=== PATIENT | female | born 1995 ===

== ENCOUNTER 2019-04-10 03:45 | Inpatient (IN) | payer OTHER ==
[2019-04-10] MEDS ORDERED: Carboprost Tromethamine 250 MCG/1 ML Amp IM PRN (04:27)
[2019-04-10] MEDS ORDERED: Sodium Chloride 0.9% 2.5 ML Syringe FLUSH PRN (04:27)
[2019-04-10] MEDS ORDERED: Ondansetron 4 MG/2 ML SDV IV PRN (04:27)
[2019-04-10] MEDS ORDERED: Water For Irrigation,Sterile 1,000 ML Container IRR PRN (04:27)
[2019-04-10] MEDS ORDERED: Sodium Chloride 0.9% 10 ML Syringe FLUSH PRN (04:27)
[2019-04-10] MEDS ORDERED: Misoprostol 200 MCG Tab PO PRN (04:27)
[2019-04-10] MEDS ORDERED: Methylergonovine 0.2 MG/1 ML Amp IM PRN (04:27)
[2019-04-10] MEDS ORDERED: Sodium Chloride 0.9% 10 ML SDV IV PRN (04:27)
[2019-04-10] MEDS ORDERED: Lidocaine 1% 50 ML MDV INJECT PRN (04:27)
[2019-04-10] MEDS ORDERED: Nalbuphine 10 MG/1 ML Vial IVPUSH PRN ×2 (04:27→18:52)
[2019-04-10] MEDS ORDERED: Terbutaline 1 MG/ML SDV SUBCUT PRN (04:27)
[2019-04-10] MEDS ORDERED: Tranexamic Acid 1,000 MG in Sodium Chloride 0.9% 100 ML IV PRN (04:27)
[2019-04-10] MEDS ORDERED: Oxytocin/0.9 % Sodium Chloride 30 UNIT/500 ML BAG IV SCH ×2 (04:30)
[2019-04-10] MEDS ORDERED: Misoprostol 25 MCG (1/4 of 100 MCG) Tab VAG PRN ×2 (05:00)
[2019-04-10] MEDS ORDERED: Misoprostol 25 MCG (1/4 of 100 MCG) Tab PO SCH (05:00)
--- NOTE | 2019-04-10 08:53 | PCM.LDHP ---
L&D History of Present Illness - General Date of Service: 04/10/19 Admit Problem/Dx: Patient Status Order with Admit Dx/Problem 04/10/19 04:27 Patient Status [ADT] Routine Admission Diagnosis/Problem Admission Diagnosis/Problem Planned Source of Information: Patient History Limitations: Reports: No Limitations - History of Present Illness Introduction:: 23 yo presents for IOL; O+/RI/GBS- - Related Data Allergies/Adverse Reactions: Allergies Allergy/AdvReac Type Severity Reaction Status Date / Time No Known Allergies Allergy Verified 04/10/19 04:26 Home Medications: Home Meds PNV95/Ferrous Fumarate/FA [ Vitamin Tablet] 1 tab PO DAILY 04/10/19 [ History] Past Medical History - Past Health History Medical/Surgical History: Denies Medical/Surgical History HEENT History: Reports: None Cardiovascular History: Reports: None Respiratory History: Reports: None Gastrointestinal History: Reports: None Genitourinary History: Reports: None 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: Reports: Musculoskeletal History: Reports: None Neurological History: Reports: None Psychiatric History: Reports: None Endocrine/Metabolic History: Reports: None Hematologic History: Reports: None Immunologic History: Reports: None Oncologic (Cancer) History: Reports: None Dermatologic History: Reports: None - Infectious Disease History Infectious Disease History: Reports: None - Past Surgical History Head Surgeries/Procedures: Reports: None HEENT Surgical History: Reports: None Cardiovascular Surgical History: Reports: None Respiratory Surgical History: Reports: None GI Surgical History: Reports: None Female Surgical History: Reports: None Endocrine Surgical History: Reports: None Neurological Surgical History: Reports: None Musculoskeletal Surgical History: Reports: None Oncologic Surgical History: Reports: None Dermatological Surgical History: Reports: None Social & Family History - Family History HEENT: Reports: None Cardiac: Reports: None Respiratory: Reports: None GI: Reports: None : Reports: None OBGYN: Reports: None Musculoskeletal: Reports: None Neurological: Reports: None Psychiatric: Reports: None Endocrine/Metabolic: Reports: None Hematologic: Reports: None Immunologic: Reports: None Dermatologic: Reports: None Oncologic: Reports: Breast - Tobacco Use Smoking Status *Q: Former Smoker Packs/Tins Daily: 1 Used Tobacco, but Quit: Yes Month/Year Tobacco Last Used: 07/2018 Second Hand Smoke Exposure: No - Caffeine Use Caffeine Use: Reports: Coffee, Soda - Recreational Drug Use Recreational Drug Use: No H&P Review of Systems - Review of Systems: Review Of Systems: See Below General: Reports: No Symptoms HEENT: Reports: No Symptoms Pulmonary: Reports: No Symptoms Cardiovascular: Reports: No Symptoms Gastrointestinal: Reports: No Symptoms Genitourinary: Reports: No Symptoms Musculoskeletal: Reports: No Symptoms Skin: Reports: No Symptoms Psychiatric: Reports: No Symptoms Neurological: Reports: No Symptoms Hematologic/Lymphatic: Reports: No Symptoms Immunologic: Reports: No Symptoms L&D Exam - Exam Exam: See Below - Vital Signs Weight: 98.883 kg - OB Specific Movement: Active Heart Tones: Present Heart Tones per Min: 135 - Carter Score Carter Score Cervix Position: Midposition Carter Score Consistency: Soft Carter Score Effacement: >80% Carter Score Dilation: 1-2 cm Carter Score 's Station: -2 Carter Score Total: 8 - Exam General: Alert, Oriented, Cooperative Lungs: Clear to Auscultation, Normal Respiratory Effort Cardiovascular: Regular Rate, Regular Rhythm Rectal Exam: Deferred Genitourinary: Normal external exam Back Exam: Full Range of Motion Extremities: Normal Inspection, Normal Range of Motion Skin: Warm, Dry, Intact Psychiatric: Alert, Normal Affect, Normal Mood - Patient Data Lab Results Last 24 hrs: Laboratory Results - last 24 hr 04/10/19 04/10/19 Range/Units 04:50 04:50 WBC 15.24 H (4.0-11.0) K/uL RBC 4.17 L (4.30-5.90) M/uL Hgb 12.6 (12.0-16.0) g/dL Hct 38.2 (36.0-46.0) % MCV 91.6 (80.0-98.0) fL MCH 30.2 (27.0-32.0) pg MCHC 33.0 (31.0-37.0) g/dL RDW Std Deviation 44.4 (28.0-62.0) fl RDW Coeff of Genesis 13 (11.0-15.0) % Plt Count 300 (150-400) K/uL MPV 10.90 (7.40-12.00) fL Nucleated RBC % 0.0 /100WBC Nucleated RBCs # 0 K/uL Blood Type O POSITIVE Antibody Screen NEGATIVE Result Diagrams: 04/10/19 04:50 - Problem List (1) IUP (intrauterine ), incidental SNOMED Code(s): 12892843 ICD Code: Z34.90 - ENCNTR FOR SUPRVSN OF NORMAL , UNSP, UNSP TRIMESTER Status: Acute Priority: High Current Visit: Yes Problem List Initiated/Reviewed/Updated: Yes Orders Last 24hrs: Active Orders 24 hr Category Date Time Status Patient Status [ADT] Routine ADT 04/10/19 04:27 Active Bedrest Bathroom Privileges [RC] ASDIRECTED Care 04/10/19 04:27 Active Communication Order [RC] ASDIRECTED Care 04/10/19 04:27 Active Communication Order [RC] ASDIRECTED Care 04/10/19 04:27 Active Communication Order [RC] ASDIRECTED Care 04/10/19 04:27 Active May Shower [RC] ASDIRECTED Care 04/10/19 04:27 Active Notify Provider [RC] PRN Care 04/10/19 04:27 Active Notify Provider [RC] PRN Care 04/10/19 04:27 Active Notify Provider [RC] PRN Care 04/10/19 04:27 Active Notify Provider [RC] STAT Care 04/10/19 04:27 Active Up ad Mari [RC] ASDIRECTED Care 04/10/19 04:27 Active Vital Signs [RC] PER UNIT ROUTINE Care 04/10/19 04:27 Active Regular Diet [DIET] Diet 04/10/19 Breakfast Active Carboprost Tromethamine [Hemabate DS] Med 04/10/19 04:27 Active 250 mcg IM ASDIRECTED PRN Lactated Ringers [Ringers, Lactated] 1,000 ml Med 04/10/19 04:30 Active IV ASDIRECTED Lidocaine 1% [Xylocaine 1%] Med 04/10/19 04:27 Active 50 ml INJECT ONETIME PRN Methylergonovine [Methergine] Med 04/10/19 04:27 Active 0.2 mg IM ASDIRECTED PRN Nalbuphine [Nubain] Med 04/10/19 04:27 Active 10 mg IVPUSH Q1H PRN Ondansetron [Zofran] Med 04/10/19 04:27 Active 4 mg IV Q6H PRN Oxytocin/0.9 % Sodium Chloride [Oxytocin 30 Unit/500 ML Med 04/10/19 04:30 Active -NS] 30 unit in 500 ml IV TITRATE Oxytocin/0.9 % Sodium Chloride [Oxytocin 30 Unit/500 ML Med 04/10/19 04:30 Active -NS] 30 unit in 500 ml IV TITRATE Sodium Chloride 0.9% [Normal Saline] Med 04/10/19 04:27 Active 10 ml IV ASDIRECTED PRN Sodium Chloride 0.9% [Saline Flush] Med 04/10/19 04:27 Active 10 ml FLUSH ASDIRECTED PRN Sodium Chloride 0.9% [Saline Flush] Med 04/10/19 04:27 Active 2.5 ml FLUSH ASDIRECTED PRN Terbutaline [Brethine] Med 04/10/19 04:27 Active 0.25 mg SUBCUT ASDIRECTED PRN Tranexamic Acid [Cyklokapron] 1,000 mg Med 04/10/19 04:27 Active Sodium Chloride 0.9% [Normal Saline] 100 ml IV ONETIME Water For Irrigation,Sterile [Sterile Water for Med 04/10/19 04:27 Active Irrigation] 1,000 ml IRR ASDIRECTED PRN miSOPROStol [Cytotec] Med 04/10/19 04:27 Active 200 mcg PO ONETIME PRN miSOPROStol [Cytotec] Med 04/10/19 05:00 Active 25 mcg PO Q4H miSOPROStol [Cytotec] Med 04/10/19 05:00 Active 25 mcg VAG ONETIME PRN miSOPROStol [Cytotec] Med 04/10/19 05:00 Active 25 mcg VAG Q4H PRN Scalp Electrode [WOMSER] Per Unit Routine Oth 04/10/19 04:27 Ordered Medication Administration Instruction [OM.PC] Q3H Oth 04/10/19 04:30 Ordered Peripheral IV Insertion Adult [OM.PC] Routine Oth 04/10/19 04:27 Ordered Resuscitation Status Routine Resus Stat 04/10/19 04:27 Ordered Medication Orders Carboprost Tromethamine (Hemabate Ds) 250 mcg IM ASDIRECTED PRN PRN Reason: Post Hemorrhage Lactated Ringer's (Ringers, Lactated) 1,000 mls @ 150 mls/hr IV ASDIRECTED EDNA Oxytocin/Sodium Chloride (Oxytocin 30 Unit/500 Ml-Ns) 30 unit in 500 mls @ 999 mls/hr IV TITRATE EDNA Oxytocin/Sodium Chloride (Oxytocin 30 Unit/500 Ml-Ns) 30 unit in 500 mls @ 2 mls/hr IV TITRATE EDNA; Protocol Tranexamic Acid 1,000 mg/ (Sodium Chloride) 110 mls @ 660 mls/hr IV ONETIME PRN PRN Reason: Bleeding Lidocaine HCl (Xylocaine 1%) 50 ml INJECT ONETIME PRN PRN Reason: Laceration repair Methylergonovine Maleate (Methergine) 0.2 mg IM ASDIRECTED PRN PRN Reason: Post Hemorrhage Misoprostol (Cytotec) 200 mcg PO ONETIME PRN PRN Reason: Post Hemorrhage Misoprostol (Cytotec) 25 mcg VAG ONETIME PRN PRN Reason: Cervical Ripening Last Admin: 04/10/19 05:08 Dose: 25 mcg Misoprostol (Cytotec) 25 mcg VAG Q4H PRN PRN Reason: Cervical Ripening Misoprostol (Cytotec) 25 mcg PO Q4H EDNA Last Admin: 04/10/19 05:08 Dose: 25 mcg Nalbuphine HCl (Nubain) 10 mg IVPUSH Q1H PRN PRN Reason: Pain (severe 7-10) Ondansetron HCl (Zofran) 4 mg IV Q6H PRN PRN Reason: Nausea/Vomiting Sodium Chloride (Saline Flush) 10 ml FLUSH ASDIRECTED PRN PRN Reason: Keep Vein Open Sodium Chloride (Saline Flush) 2.5 ml FLUSH ASDIRECTED PRN PRN Reason: Keep Vein Open Sodium Chloride (Normal Saline) 10 ml IV ASDIRECTED PRN PRN Reason: IV Use Sterile Water (Sterile Water For Irrigation) 1,000 ml IRR ASDIRECTED PRN PRN Reason: delivery Terbutaline Sulfate (Brethine) 0.25 mg SUBCUT ASDIRECTED PRN PRN Reason: Tacysystole Assessment/Plan Comment:: Admit: A: 23 yo presents for IOL; O+/RI/GBS-, SVE 3/80/-2, soft, mid; AROM clear P: cytotec to pitocin, expectant managment; anticipate , Dr. Rubi updated
[2019-04-10] MEDS: Lactated Ringers 1,000 ML IV SCH ×3 (10:05→13:35)
[2019-04-10] MEDS ORDERED: Ropivacaine 0.2% 2 MG/ML 20 ML SDV ONE (10:22)
[2019-04-10] MEDS ORDERED: fentaNYL 100 MCG/2 ML SDV ONE (10:22)
[2019-04-10] MEDS ORDERED: Ropivacaine HCl/PF 100 ML ONE (10:23)
--- NOTE | 2019-04-10 10:58 | PCM.PREANE ---
Preanesthetic Assessment - Anesthesia/Transfusion/Family Hx Anesthesia History: No Prior Anesthesia Family History of Anesthesia Reaction: No Transfusion History: No Prior Transfusion(s) Type of Transfusion Reactions: Reports: Unknown - Review of Systems General: No Symptoms Pulmonary: No Symptoms Cardiovascular: No Symptoms Gastrointestinal: No Symptoms Neurological: No Symptoms Other: Reports: None - Physical Assessment NPO Status Date: 04/10/19 NPO Status Time: 07:00 (kyrgyz to) Height: 5 ft 6 in Weight: 98.883 kg ASA Class: 2E Mental Status: Alert & Oriented x3 Airway Class: Mallampati = 2 Dentition: Reports: Normal Dentition Thyro-Mental Finger Breadths: 3 ROM/Head Extension: Full Lungs: Clear to Auscultation, Normal Respiratory Effort Cardiovascular: Regular Rate, Regular Rhythm Other: tongue ring - Lab Values: Laboratory Last Values WBC 15.24 K/uL (4.0-11.0) H 04/10/19 04:50 RBC 4.17 M/uL (4.30-5.90) L 04/10/19 04:50 Hgb 12.6 g/dL (12.0-16.0) 04/10/19 04:50 Hct 38.2 % (36.0-46.0) 04/10/19 04:50 MCV 91.6 fL (80.0-98.0) 04/10/19 04:50 MCH 30.2 pg (27.0-32.0) 04/10/19 04:50 MCHC 33.0 g/dL (31.0-37.0) 04/10/19 04:50 RDW Std Deviation 44.4 fl (28.0-62.0) 04/10/19 04:50 RDW Coeff of Genesis 13 % (11.0-15.0) 04/10/19 04:50 Plt Count 300 K/uL (150-400) 04/10/19 04:50 MPV 10.90 fL (7.40-12.00) 04/10/19 04:50 Nucleated RBC % 0.0 /100WBC 04/10/19 04:50 Nucleated RBCs # 0 K/uL 04/10/19 04:50 Blood Type O POSITIVE 04/10/19 04:50 Antibody Screen NEGATIVE 04/10/19 04:50 - Allergies Allergies/Adverse Reactions: Allergies Allergy/AdvReac Type Severity Reaction Status Date / Time No Known Allergies Allergy Verified 04/10/19 04:26 - Acknowledgements Anesthesia Type Planned: Epidural Pt an Appropriate Candidate for the Planned Anesthesia: Yes Alternatives and Risks of Anesthesia Discussed w Pt/Guardian: Yes Pt/Guardian Understands and Agrees with Anesthesia Plan: Yes PreAnesthesia Questionnaire - Past Health History Medical/Surgical History: Denies Medical/Surgical History HEENT History: Reports: None Cardiovascular History: Reports: None Respiratory History: Reports: None Gastrointestinal History: Reports: None Genitourinary History: Reports: None 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: Musculoskeletal History: Reports: None Neurological History: Reports: None Psychiatric History: Reports: None Endocrine/Metabolic History: Reports: None Hematologic History: Reports: None Immunologic History: Reports: None Oncologic (Cancer) History: Reports: None Dermatologic History: Reports: None - Infectious Disease History Infectious Disease History: Reports: None - Past Surgical History Head Surgeries/Procedures: Reports: None HEENT Surgical History: Reports: None Cardiovascular Surgical History: Reports: None Respiratory Surgical History: Reports: None GI Surgical History: Reports: None Female Surgical History: Reports: None Endocrine Surgical History: Reports: None Neurological Surgical History: Reports: None Musculoskeletal Surgical History: Reports: None Oncologic Surgical History: Reports: None Dermatological Surgical History: Reports: None - SUBSTANCE USE Smoking Status *Q: Former Smoker Tobacco Use Within Last Twelve Months: Cigarettes Second Hand Smoke Exposure: No Recreational Drug Use History: No - HOME MEDS Home Medications: Home Meds PNV95/Ferrous Fumarate/FA [ Vitamin Tablet] 1 tab PO DAILY 04/10/19 [ History] - CURRENT (IN HOUSE) MEDS Current Meds: Current Medications Carboprost Tromethamine (Hemabate Ds) 250 mcg IM ASDIRECTED PRN PRN Reason: Post Hemorrhage Lactated Ringer's (Ringers, Lactated) 1,000 mls @ 150 mls/hr IV ASDIRECTED EDNA Last Admin: 04/10/19 10:48 Dose: 999 mls/hr Oxytocin/Sodium Chloride (Oxytocin 30 Unit/500 Ml-Ns) 30 unit in 500 mls @ 999 mls/hr IV TITRATE EDNA Oxytocin/Sodium Chloride (Oxytocin 30 Unit/500 Ml-Ns) 30 unit in 500 mls @ 2 mls/hr IV TITRATE EDNA; Protocol Tranexamic Acid 1,000 mg/ (Sodium Chloride) 110 mls @ 660 mls/hr IV ONETIME PRN PRN Reason: Bleeding Lidocaine HCl (Xylocaine 1%) 50 ml INJECT ONETIME PRN PRN Reason: Laceration repair Methylergonovine Maleate (Methergine) 0.2 mg IM ASDIRECTED PRN PRN Reason: Post Hemorrhage Misoprostol (Cytotec) 200 mcg PO ONETIME PRN PRN Reason: Post Hemorrhage Misoprostol (Cytotec) 25 mcg VAG ONETIME PRN PRN Reason: Cervical Ripening Last Admin: 04/10/19 05:08 Dose: 25 mcg Misoprostol (Cytotec) 25 mcg VAG Q4H PRN PRN Reason: Cervical Ripening Misoprostol (Cytotec) 25 mcg PO Q4H EDNA Last Admin: 04/10/19 05:08 Dose: 25 mcg Nalbuphine HCl (Nubain) 10 mg IVPUSH Q1H PRN PRN Reason: Pain (severe 7-10) Ondansetron HCl (Zofran) 4 mg IV Q6H PRN PRN Reason: Nausea/Vomiting Sodium Chloride (Saline Flush) 10 ml FLUSH ASDIRECTED PRN PRN Reason: Keep Vein Open Sodium Chloride (Saline Flush) 2.5 ml FLUSH ASDIRECTED PRN PRN Reason: Keep Vein Open Sodium Chloride (Normal Saline) 10 ml IV ASDIRECTED PRN PRN Reason: IV Use Sterile Water (Sterile Water For Irrigation) 1,000 ml IRR ASDIRECTED PRN PRN Reason: delivery Terbutaline Sulfate (Brethine) 0.25 mg SUBCUT ASDIRECTED PRN PRN Reason: Tacysystole Discontinued Medications Fentanyl (Sublimaze) Confirm Administered Dose 300 mcg .ROUTE .STK-MED ONE Stop: 04/10/19 10:23 Ropivacaine (Naropin 0.2%) Confirm Administered Dose 100 mls @ as directed .ROUTE .STK-MED ONE Stop: 04/10/19 10:24 Ropivacaine (Naropin 0.2%) Confirm Administered Dose 20 ml .ROUTE .STK-MED ONE Stop: 04/10/19 10:23
[2019-04-10] MEDS ORDERED: Phenylephrine 1% 10 MG/ML SDV ONE (17:52)
[2019-04-10] MEDS ORDERED: Morphine PF 10 MG/10 ML SDV ONE (17:56)
[2019-04-10] MEDS ORDERED: Oxytocin 10 Units/1 ML SDV ONE (18:15)
[2019-04-10] MEDS ORDERED: Octyl 2-Cyanoacrylate 1 Tube ONE (18:38)
[2019-04-10] MEDS ORDERED: fentaNYL 250 MCG/5 ML SDV ONE (18:51)
[2019-04-10] MEDS ORDERED: Acetaminophen/oxyCODONE 325-5 MG Tab PO PRN (18:52)
[2019-04-10] MEDS ORDERED: Lanolin 100% Cream 7 GM Tube TOP PRN (19:11)
[2019-04-10] MEDS ORDERED: Bisacodyl 10 MG Supp RECTAL PRN (19:11)
[2019-04-10] MEDS ORDERED: Ondansetron 4 MG/2 ML SDV IVPUSH PRN (19:11)
[2019-04-10] MEDS ORDERED: diphenhydrAMINE 50 MG/ML SDV IVPUSH PRN (19:11)
--- NOTE | 2019-04-10 19:14 | PCM.OPNOTE ---
- General Post-Op/Procedure Note Date of Surgery/Procedure: 04/10/19 Operative Procedure(s): Primary C/Section. Pre Op Diagnosis: IUP term prcestent occipt post Post-Op Diagnosis: Same Anesthesia Technique: Spinal Primary Surgeon: Fausto Rubi EBL in mLs: 700 Complications: None Condition: Good
[2019-04-10] MEDS ORDERED: Lactated Ringers 1,000 ML IV SCH (19:15)
[2019-04-10] MEDS: Ketorolac 30 MG/ML SDV IVPUSH SCH (19:36)
[2019-04-10] MEDS ORDERED: Oxytocin/0.9 % Sodium Chloride 30 UNIT/500 ML BAG ONE (20:28)
--- NOTE | 2019-04-11 01:53 | OR ---
SURGEON: Fausto Rubi MD DATE OF PROCEDURE: PREOPERATIVE DIAGNOSES: Intrauterine , is term. PREOPERATIVE DIAGNOSES: Intrauterine , is term. OPERATION PERFORMED: Primary low-transverse section. PRIMARY SURGEON: Fausto Rubi MD. JAVA SYBASE DEVELOPER: OR tech. ANESTHESIA: Spinal. ESTIMATED BLOOD LOSS: 700 mL. COMPLICATIONS: None. FINDINGS: Female fetus. score of 8 and 9. Normal uterus, tubes, and ovaries. INDICATION FOR SURGERY: This patient is 23. She is primigravida. She is followed in our clinic primarily by our nurse paper reel operator. She is admitted for elective induction at term. The patient has responded to induction and she progressed nicely. She became complete-complete vertex, 0 station, and she was adequately contracted and she pushed in excess of 3 hours without further descent of the fetus. I was consulted and upon examination of the patient, the patient was complete-complete vertex and she is occiput posterior. The patient was in extreme amount of pain. She was not amenable to vacuum extraction, and after discussion with the patient and her , a decision was made to do a primary low-transverse section. PROCEDURE IN DETAIL: The patient was brought to the OR, properly identified, and after adequate level of spinal anesthesia, the patient was prepped and draped in a sterile fashion as usual. A time-out was taken and then with a Hadley catheter in the bladder, a low transverse Pfannenstiel skin incision was done. Rodríguez's fascia and rectus fascia were opened in direction of the incision. The 2 recti muscles were and peritoneal cavity was entered. Bladder flap was raised in the usual manner, pushing the bladder away from the lower uterine segment. The fetus was in an occiput posterior, and it was way down in the pelvis. With the aid of the nurses pushing the head vaginally, I was able to deliver the fetus without any problem, handed it to the fiber optics technician who was present at the time of the delivery. The fetus cried immediately. Later on, scores were reported to be 8 and 9. Weight was not available. The placenta delivered spontaneous, complete, and intact. Repair of the lower uterine segment was done with 2-0 Vicryl continuous interlocking in 2 layers. Reperitonealization was done with 3-0 Vicryl continuous. The peritoneal cavity was evacuated completely from all blood and blood clot and closed with 3-0 Vicryl continuous. Then the rectus fascia was closed with #1 PDS double strand continuous. The Rodríguez's fascia with 3-0 Vicryl continuous. Skin closed with skin clips, Insorb, and Dermabond. Instrument and sponge count was correct. The patient tolerated the procedure well. Went to the recovery room in stable general condition. CHRISTIAN / GABE /[id number]
[2019-04-11] MEDS: Lactated Ringers 1,000 ML IV SCH ×2 (02:28→09:05)
[2019-04-11] MEDS: Ketorolac 30 MG/ML SDV IVPUSH SCH ×4 (02:31→20:08)
--- NOTE | 2019-04-11 07:43 | PCM48HPAN ---
Post Anesthesia Note - EVALUATION WITHIN 48HRS OF ANESTHETIC Vital Signs in Normal Range: Yes Patient Participated in Evaluation: Yes Respiratory Function Stable: Yes Airway Patent: Yes Cardiovascular Function Stable: Yes Hydration Status Stable: Yes Pain Control Satisfactory: Yes Nausea and Vomiting Control Satisfactory: Yes Mental Status Recovered: Yes Resp Rate: 17 Temperature: 36.6 C - COMMENTS/OBSERVATIONS Free Text/Narrative:: Patient states she is doing better today and denies complaints. RN in room and asked her if she needed pain med and she declined.
[2019-04-11] MEDS: Docusate Sodium 100 MG Cap PO SCH ×3 (08:55→20:08)
--- NOTE | 2019-04-11 10:51 | CONS ---
CONSULTATION AND PROGRESS NOTE: DATE OF CONSULT: 04/11/2019 PRIMARY CARE PHYSICIAN: None PCP Ms. Wiseman, age 23, she is status post section few hours ago. I was called to evaluate the patient because of bleeding. At the time of arrival, the patient was conscious and her vital signs were stable. Her blood pressure is relatively low. I examined the patient vaginally. There was a blood clot in the vagina, and then I farther put my hand into the uterus, and there was copious amount of blood clot in the uterus. Once the blood clot was evacuated completely, the bleeding slowed down tremendously. Meanwhile, we started another IV on the patient, and the patient was given 2 L of Ringer lactate and glutamic acid for bleeding. It was given according to the protocol, and the patient got transfused with a 3 units of packed cells. I stayed at the bedside of the patient in excess of an hour until her blood pressure and pulse had stabilized, and her bleeding almost came back to normal kind of bleeding after section. My plan is to do H and H at midnight and then at six o'clock in the morning, and we will have another 3 units of packed cells on standby if it needs to be transfused. CHRISTIAN / GABE /[id number] ANITRA
--- NOTE | 2019-04-11 11:27 | PCM.PNPP ---
- General Info Date of Service: 04/11/19 Functional Status: Reports: Pain Controlled - Review of Systems General: Reports: No Symptoms HEENT: Reports: No Symptoms Pulmonary: Reports: No Symptoms Cardiovascular: Reports: No Symptoms Gastrointestinal: Reports: No Symptoms Genitourinary: Reports: No Symptoms Musculoskeletal: Reports: No Symptoms Skin: Reports: No Symptoms Neurological: Reports: No Symptoms Psychiatric: Reports: No Symptoms - Patient Data Vital Signs - Most Recent: Last Vital Signs Temp 36.6 C 04/11/19 07:42 Pulse 117 H 04/11/19 10:00 Resp 18 04/11/19 10:00 BP 86/52 L 04/11/19 09:00 Pulse Ox 99 04/11/19 10:00 Weight - Most Recent: 98.883 kg I&O - Last 24 Hours: Intake & Output 04/10/19 04/11/19 04/11/19 22:59 06:59 14:59 Intake Total 2100 600 Output Total 250 Balance 1850 600 Lab Results - Last 24 Hours: Laboratory Results - last 24 hr 04/10/19 04/11/19 04/11/19 Range/Units 04:50 01:00 06:22 Hgb 11.6 L 9.3 L (12.0-16.0) g/dL Hct 33.6 L 26.9 L (36.0-46.0) % Blood Type O POSITIVE Antibody Screen NEGATIVE Crossmatch See Detail Med Orders - Current: Current Medications Bisacodyl (Dulcolax) 10 mg RECTAL ONETIME PRN PRN Reason: Constipation Carboprost Tromethamine (Hemabate Ds) 250 mcg IM ASDIRECTED PRN PRN Reason: Post Hemorrhage Diphenhydramine HCl (Benadryl) 25 mg IVPUSH Q6H PRN PRN Reason: Itching or Nausea Docusate Sodium (Colace) 100 mg PO BID [facility] Last Admin: 04/11/19 08:55 Dose: 100 mg Emollient Ointment (Lansinoh Hpa) 0 gm TOP ASDIRECTED PRN PRN Reason: Sore Nipples Lactated Ringer's (Ringers, Lactated) 1,000 mls @ 150 mls/hr IV ASDIRECTED [facility] Last Admin: 04/11/19 09:05 Dose: 150 mls/hr Oxytocin/Sodium Chloride (Oxytocin 30 Unit/500 Ml-Ns) 30 unit in 500 mls @ 999 mls/hr IV TITRATE [facility] Tranexamic Acid 1,000 mg/ (Sodium Chloride) 110 mls @ 660 mls/hr IV ONETIME PRN PRN Reason: Bleeding Last Admin: 04/10/19 21:00 Dose: 660 mls/hr Lactated Ringer's (Ringers, Lactated) 1,000 mls @ 125 mls/hr IV ASDIRECTED [facility] Ibuprofen (Motrin) 800 mg PO Q8H PRN PRN Reason: mild pain or fever Ketorolac Tromethamine (Toradol) 30 mg IVPUSH Q6H [facility] Stop: 04/11/19 19:16 Last Admin: 04/11/19 08:35 Dose: 30 mg Lidocaine HCl (Xylocaine 1%) 50 ml INJECT ONETIME PRN PRN Reason: Laceration repair Methylergonovine Maleate (Methergine) 0.2 mg IM ASDIRECTED PRN PRN Reason: Post Hemorrhage Misoprostol (Cytotec) 200 mcg PO ONETIME PRN PRN Reason: Post Hemorrhage Nalbuphine HCl (Nubain) 10 mg IVPUSH Q1H PRN PRN Reason: Pain (severe 7-10) Nalbuphine HCl (Nubain) 2.5 mg IVPUSH Q3H PRN PRN Reason: Pruritis Stop: 04/11/19 18:52 Ondansetron HCl (Zofran) 4 mg IV Q6H PRN PRN Reason: Nausea/Vomiting Ondansetron HCl (Zofran) 4 mg IVPUSH Q4H PRN PRN Reason: Nausea/Vomiting Oxycodone/Acetaminophen (Percocet 325-5 Mg) 1 tab PO ONETIME PRN PRN Reason: Pain (moderate 4-6) Oxycodone/Acetaminophen (Percocet 325-5 Mg) 1 tab PO Q4H PRN PRN Reason: Pain (moderate 4-6) Oxycodone/Acetaminophen (Percocet 325-5 Mg) 2 tab PO Q4H PRN PRN Reason: Pain (moderate 4-6) Sodium Chloride (Saline Flush) 10 ml FLUSH ASDIRECTED PRN PRN Reason: Keep Vein Open Sodium Chloride (Saline Flush) 2.5 ml FLUSH ASDIRECTED PRN PRN Reason: Keep Vein Open Sodium Chloride (Normal Saline) 10 ml IV ASDIRECTED PRN PRN Reason: IV Use Sterile Water (Sterile Water For Irrigation) 1,000 ml IRR ASDIRECTED PRN PRN Reason: delivery Discontinued Medications Fentanyl (Sublimaze) Confirm Administered Dose 300 mcg .ROUTE .STK-MED ONE Stop: 04/10/19 10:23 Fentanyl (Sublimaze) Confirm Administered Dose 250 mcg .ROUTE .STK-MED ONE Stop: 04/10/19 18:52 Oxytocin/Sodium Chloride (Oxytocin 30 Unit/500 Ml-Ns) 30 unit in 500 mls @ 2 mls/hr IV TITRATE [facility]; Protocol Last Admin: 04/10/19 11:53 Dose: 2 munits/min, 2 mls/hr Ropivacaine (Naropin 0.2%) Confirm Administered Dose 100 mls @ as directed .ROUTE .STK-MED ONE Stop: 04/10/19 10:24 Oxytocin/Sodium Chloride (Oxytocin 30 Unit/500 Ml-Ns) Confirm Administered Dose 30 unit in 500 mls @ as directed .ROUTE .STK-MED ONE Stop: 04/10/19 20:29 Last Admin: 04/10/19 20:30 Dose: 999 mls/hr Misoprostol (Cytotec) 25 mcg VAG ONETIME PRN PRN Reason: Cervical Ripening Last Admin: 04/10/19 05:08 Dose: 25 mcg Misoprostol (Cytotec) 25 mcg VAG Q4H PRN PRN Reason: Cervical Ripening Misoprostol (Cytotec) 25 mcg PO Q4H [facility] Last Admin: 04/10/19 05:08 Dose: 25 mcg Morphine Sulfate (Duramorph Pf) Confirm Administered Dose 10 mg .ROUTE .STK-MED ONE Stop: 04/10/19 17:57 Octyl Cyanoacrylate (Dermabond Advance) Confirm Administered Dose 1 applic .ROUTE .STK-MED ONE Stop: 04/10/19 18:39 Oxytocin (Pitocin) Confirm Administered Dose 20 unit .ROUTE .STK-MED ONE Stop: 04/10/19 18:16 Phenylephrine HCl (Etienne-Synephrine) Confirm Administered Dose 10 mg .ROUTE .STK- MED ONE Stop: 04/10/19 17:53 Ropivacaine (Naropin 0.2%) Confirm Administered Dose 20 ml .ROUTE .STK-MED ONE Stop: 04/10/19 10:23 Terbutaline Sulfate (Brethine) 0.25 mg SUBCUT ASDIRECTED PRN PRN Reason: Tacysystole - Interaction Infant Disposition, : [place] in Room with Family Infant Interaction: Holding Infant Feeding: Attempted ; Nursed Fair/Poor Support Person: Significant Other - Recovery Exam Fundal Tone: Firm Fundal Level: 1 Fingerbreadths Below Umbilicus Fundal Placement: Midline Lochia Amount: Scant Lochia Color: Rubra/Red Perineum Description: Intact, Minimal Bruising/Swelling Episiotomy/Laceration: None Bladder Status: Indwelling Catheter in Place Urinary Elimination: Straight Catheterization - Exam General: Alert, Oriented HEENT: Pupils Equal Neck: Supple Lungs: Clear to Auscultation, Normal Respiratory Effort Cardiovascular: Regular Rate, Regular Rhythm GI/Abdominal Exam: Normal Bowel Sounds, Soft, Non-Tender, No Organomegaly, No Distention, No Abnormal Bruit, No Mass, Pelvis Stable Extremities: Normal Inspection, Normal Range of Motion, Non-Tender, No Pedal Edema, Normal Capillary Refill Skin: Warm, Dry, Intact Wound/Incisions: Healing Well Neurological: No New Focal Deficit Psy/Mental Status: Alert, Normal Affect, Normal Mood - Problem List Review Problem List Initiated/Reviewed/Updated: Yes - My Orders Last 24 Hours: My Active Orders 04/10/19 19:11 Patient Status [ADT] Routine Ambulate [RC] PER UNIT ROUTINE Antiembolic Devices [RC] PER UNIT ROUTINE Communication Order [RC] PER UNIT ROUTINE Communication Order [RC] PER UNIT ROUTINE Communication Order [RC] Per Unit Routine May Shower [RC] ASDIRECTED RT Incentive Spirometry [RC] Q2HWA Acetaminophen/oxyCODONE [Percocet 325-5 MG] 1 tab PO Q4H PRN Acetaminophen/oxyCODONE [Percocet 325-5 MG] 2 tab PO Q4H PRN Bisacodyl [Dulcolax] 10 mg RECTAL ONETIME PRN Lanolin [Lansinoh HPA] See Dose Instructions TOP ASDIRECTED PRN Ondansetron [Zofran] 4 mg IVPUSH Q4H PRN diphenhydrAMINE [Benadryl] 25 mg IVPUSH Q6H PRN Assess Lochia [WOMSER] Per Unit Routine Assess Uterine Involution [WOMSER] Per Unit Routine Breast Pump [WOMSER] Per Unit Routine Peripheral IV Discontinue [OM.PC] Routine Sequential Compression Device [OM.PC] Per Unit Routine 04/10/19 19:15 Ketorolac [Toradol] 30 mg IVPUSH Q6H Lactated Ringers [Ringers, Lactated] 1,000 ml IV ASDIRECTED 04/10/19 21:00 Docusate Sodium [Colace] 100 mg PO BID 04/10/19 21:01 Transfuse PRBC [Transfuse Red Blood Cells] [COMM] Stat 04/12/19 02:15 Ibuprofen [Motrin] 800 mg PO Q8H PRN - Plan Plan:: Admit: A: 23 yo presents for IOL; O+/RI/GBS-, SVE 3/80/-2, soft, mid; AROM clear P: cytotec to pitocin, expectant managment; anticipate , Dr. Rubi updated
[2019-04-11] MEDS: Acetaminophen/oxyCODONE 325-5 MG Tab PO PRN (21:49)
[2019-04-12] MEDS: Acetaminophen/oxyCODONE 325-5 MG Tab PO PRN ×6 (00:58→23:58)
[2019-04-12] MEDS: Ibuprofen 800 MG Tab PO PRN ×3 (01:52→21:01)
[2019-04-12] MEDS ORDERED: Morphine 10 MG/ML Syringe IVPUSH PRN (02:26)
--- NOTE | 2019-04-12 08:37 | PCM.PNPP ---
- General Info Date of Service: 04/12/19 Functional Status: Reports: Pain Controlled, Tolerating Diet, Ambulating, Urinating - Review of Systems General: Reports: No Symptoms HEENT: Reports: No Symptoms Pulmonary: Reports: No Symptoms Cardiovascular: Reports: No Symptoms Gastrointestinal: Reports: No Symptoms Genitourinary: Reports: No Symptoms Musculoskeletal: Reports: No Symptoms Skin: Reports: No Symptoms Neurological: Reports: No Symptoms Psychiatric: Reports: No Symptoms - Patient Data Vital Signs - Most Recent: Last Vital Signs Temp 36.3 C 04/12/19 07:40 Pulse 118 H 04/12/19 07:40 Resp 18 04/12/19 07:40 BP 100/59 L 04/12/19 07:40 Pulse Ox 92 L 04/12/19 07:40 Weight - Most Recent: 98.883 kg I&O - Last 24 Hours: Intake & Output 04/11/19 04/12/19 04/12/19 22:59 06:59 14:59 Output Total 1450 Balance -1450 Lab Results - Last 24 Hours: Laboratory Results - last 24 hr 04/10/19 Range/Units 04:50 Blood Type O POSITIVE Antibody Screen NEGATIVE Crossmatch See Detail Med Orders - Current: Current Medications Bisacodyl (Dulcolax) 10 mg RECTAL ONETIME PRN PRN Reason: Constipation Carboprost Tromethamine (Hemabate Ds) 250 mcg IM ASDIRECTED PRN PRN Reason: Post Hemorrhage Diphenhydramine HCl (Benadryl) 25 mg IVPUSH Q6H PRN PRN Reason: Itching or Nausea Docusate Sodium (Colace) 100 mg PO BID [facility] Last Admin: 04/11/19 20:08 Dose: 100 mg Emollient Ointment (Lansinoh Hpa) 0 gm TOP ASDIRECTED PRN PRN Reason: Sore Nipples Last Admin: 04/12/19 01:45 Dose: 7 gm Lactated Ringer's (Ringers, Lactated) 1,000 mls @ 150 mls/hr IV ASDIRECTED [facility] Last Admin: 04/11/19 09:05 Dose: 150 mls/hr Oxytocin/Sodium Chloride (Oxytocin 30 Unit/500 Ml-Ns) 30 unit in 500 mls @ 999 mls/hr IV TITRATE [facility] Tranexamic Acid 1,000 mg/ (Sodium Chloride) 110 mls @ 660 mls/hr IV ONETIME PRN PRN Reason: Bleeding Last Admin: 04/10/19 21:00 Dose: 660 mls/hr Lactated Ringer's (Ringers, Lactated) 1,000 mls @ 125 mls/hr IV ASDIRECTED [facility] Ibuprofen (Motrin) 800 mg PO Q8H PRN PRN Reason: mild pain or fever Last Admin: 04/12/19 01:52 Dose: 800 mg Lidocaine HCl (Xylocaine 1%) 50 ml INJECT ONETIME PRN PRN Reason: Laceration repair Methylergonovine Maleate (Methergine) 0.2 mg IM ASDIRECTED PRN PRN Reason: Post Hemorrhage Misoprostol (Cytotec) 200 mcg PO ONETIME PRN PRN Reason: Post Hemorrhage Morphine Sulfate (Morphine) 6 - 8 mg IVPUSH Q6H PRN PRN Reason: Pain (severe 7-10) Last Admin: 04/12/19 02:50 Dose: 6 mg Nalbuphine HCl (Nubain) 10 mg IVPUSH Q1H PRN PRN Reason: Pain (severe 7-10) Ondansetron HCl (Zofran) 4 mg IV Q6H PRN PRN Reason: Nausea/Vomiting Ondansetron HCl (Zofran) 4 mg IVPUSH Q4H PRN PRN Reason: Nausea/Vomiting Oxycodone/Acetaminophen (Percocet 325-5 Mg) 1 tab PO ONETIME PRN PRN Reason: Pain (moderate 4-6) Oxycodone/Acetaminophen (Percocet 325-5 Mg) 1 tab PO Q4H PRN PRN Reason: Pain (moderate 4-6) Last Admin: 04/12/19 00:58 Dose: 1 tab Oxycodone/Acetaminophen (Percocet 325-5 Mg) 2 tab PO Q4H PRN PRN Reason: Pain (moderate 4-6) Last Admin: 04/12/19 06:02 Dose: 2 tab Sodium Chloride (Saline Flush) 10 ml FLUSH ASDIRECTED PRN PRN Reason: Keep Vein Open Sodium Chloride (Saline Flush) 2.5 ml FLUSH ASDIRECTED PRN PRN Reason: Keep Vein Open Sodium Chloride (Normal Saline) 10 ml IV ASDIRECTED PRN PRN Reason: IV Use Sterile Water (Sterile Water For Irrigation) 1,000 ml IRR ASDIRECTED PRN PRN Reason: delivery Discontinued Medications Fentanyl (Sublimaze) Confirm Administered Dose 300 mcg .ROUTE .STK-MED ONE Stop: 04/10/19 10:23 Last Admin: 04/11/19 20:05 Dose: Not Given Fentanyl (Sublimaze) Confirm Administered Dose 250 mcg .ROUTE .STK-MED ONE Stop: 04/10/19 18:52 Oxytocin/Sodium Chloride (Oxytocin 30 Unit/500 Ml-Ns) 30 unit in 500 mls @ 2 mls/hr IV TITRATE [facility]; Protocol Last Admin: 04/10/19 11:53 Dose: 2 munits/min, 2 mls/hr Ropivacaine (Naropin 0.2%) Confirm Administered Dose 100 mls @ as directed .ROUTE .STK-MED ONE Stop: 04/10/19 10:24 Last Admin: 04/11/19 20:05 Dose: Not Given Oxytocin/Sodium Chloride (Oxytocin 30 Unit/500 Ml-Ns) Confirm Administered Dose 30 unit in 500 mls @ as directed .ROUTE .ST-MED ONE Stop: 04/10/19 20:29 Last Admin: 04/10/19 20:30 Dose: 999 mls/hr Ketorolac Tromethamine (Toradol) 30 mg IVPUSH Q6H [facility] Stop: 04/11/19 19:16 Last Admin: 04/11/19 20:08 Dose: 30 mg Misoprostol (Cytotec) 25 mcg VAG ONETIME PRN PRN Reason: Cervical Ripening Last Admin: 04/10/19 05:08 Dose: 25 mcg Misoprostol (Cytotec) 25 mcg VAG Q4H PRN PRN Reason: Cervical Ripening Misoprostol (Cytotec) 25 mcg PO Q4H [facility] Last Admin: 04/10/19 05:08 Dose: 25 mcg Morphine Sulfate (Duramorph Pf) Confirm Administered Dose 10 mg .ROUTE .STK-MED ONE Stop: 04/10/19 17:57 Nalbuphine HCl (Nubain) 2.5 mg IVPUSH Q3H PRN PRN Reason: Pruritis Stop: 04/11/19 18:52 Octyl Cyanoacrylate (Dermabond Advance) Confirm Administered Dose 1 applic .ROUTE .STK-MED ONE Stop: 04/10/19 18:39 Last Admin: 04/11/19 20:06 Dose: Not Given Oxytocin (Pitocin) Confirm Administered Dose 20 unit .ROUTE .STK-MED ONE Stop: 04/10/19 18:16 Phenylephrine HCl (Etienne-Synephrine) Confirm Administered Dose 10 mg .ROUTE .STK- MED ONE Stop: 04/10/19 17:53 Ropivacaine (Naropin 0.2%) Confirm Administered Dose 20 ml .ROUTE .STK-MED ONE Stop: 04/10/19 10:23 Last Admin: 04/11/19 20:05 Dose: Not Given Terbutaline Sulfate (Brethine) 0.25 mg SUBCUT ASDIRECTED PRN PRN Reason: Tacysystole - Interaction Disposition, : in Room with Family Interaction: Holding Feeding: Attempted ; Nursed Fair/Poor Support Person: Significant Other - Recovery Exam Fundal Tone: Firm Fundal Level: 1 Fingerbreadths Below Umbilicus Fundal Placement: Midline Lochia Amount: Clots/Tissue Present Lochia Color: Rubra/Red Perineum Description: Intact, Minimal Bruising/Swelling Episiotomy/Laceration: None Bladder Status: Voiding Urinary Elimination: Voided - Exam General: Alert Neck: Supple Lungs: Clear to Auscultation, Normal Respiratory Effort Cardiovascular: Regular Rate, Regular Rhythm GI/Abdominal Exam: Normal Bowel Sounds, Soft, Non-Tender, No Organomegaly, No Distention, No Mass Extremities: Normal Inspection, Non-Tender, No Pedal Edema Skin: Warm, Dry, Intact Wound/Incisions: Healing Well Neurological: No New Focal Deficit Psy/Mental Status: Alert, Normal Affect, Normal Mood - Problem List & Annotations (1) delivery delivered SNOMED Code(s): 277689632 Code(s): O82 - ENCOUNTER FOR DELIVERY WITHOUT INDICATION Status: Acute Current Visit: Yes (2) Acute blood loss anemia SNOMED Code(s): 089295208 Code(s): D62 - ACUTE POSTHEMORRHAGIC ANEMIA Status: Acute Current Visit: Yes (3) hemorrhage SNOMED Code(s): 38873562 Code(s): O72.1 - OTHER IMMEDIATE HEMORRHAGE Status: Acute Current Visit: Yes - Problem List Review Problem List Initiated/Reviewed/Updated: Yes - Assessment Assessment:: POD#2 after - Plan Plan:: will dicharge to home this evening. discharge instructions reviewed.
[2019-04-12] MEDS: Docusate Sodium 100 MG Cap PO SCH ×2 (08:55→21:01)
[2019-04-13] MEDS: Acetaminophen/oxyCODONE 325-5 MG Tab PO PRN (04:11)
[2019-04-13] MEDS: Ibuprofen 800 MG Tab PO PRN (06:01)
[2019-04-13] MEDS: Docusate Sodium 100 MG Cap PO SCH (08:20)
--- NOTE | 2019-04-13 09:41 | PCM.DCSUM1 ---
Discharge Summary - Hospital Course Free Text/Narrative:: Primary for arrest disorder, complicated by hemorrhage, received 3 units of blood. Stable except some episodes of tachycardia, pain well controlled with oral pain medication. Today denies any dizziness or shortness of breath. She was kept an additional night due to tachycardia, this am, hemoglobin is 7.9, tachycardia resolved, lochia is minimal and she would like to go home. HPI Initial Comments: 23 year old presents for term induction of labor, with uncomplicated care. Initial exam ws /-2 induction with AROM/cytotec/pitocin planned. Diagnosis: Stroke: No - Discharge Data Discharge Date: 04/13/19 Discharge Disposition: Home, Self-Care 01 Condition: Good - Discharge Diagnosis/Problem(s) (1) delivery delivered SNOMED Code(s): 071022013 ICD Code: O82 - ENCOUNTER FOR DELIVERY WITHOUT INDICATION Status: Acute Current Visit: Yes (2) Acute blood loss anemia SNOMED Code(s): 607747827 ICD Code: D62 - ACUTE POSTHEMORRHAGIC ANEMIA Status: Acute Current Visit : Yes (3) hemorrhage SNOMED Code(s): 23352662 ICD Code: O72.1 - OTHER IMMEDIATE HEMORRHAGE Status: Acute Current Visit: Yes - Patient Summary/Data Operative Procedure(s) Performed: Primary C/Section. Complications: hemorrhage. Recommended Follow-up Testing/Procedures: Continue on iron, bleeding precautions reviewed. Follow up with Dr. Rubi in 2 and 6 weeks. Hospital Course: she was admitted for labor management, decision for primary for arrest disorder, delivery without complication. Postop course complicated by hemorrhage, received 3 units of PRBC, tranexamic acid, following this, bleeding was normal state. Postoperative course was complicated by occasional tachycardia related to anemia otherwise denies symptoms from anemia. She would like to be discharged today. - Patient Instructions Diet: Regular Diet as Tolerated Activity: No Lifting Over 10 Pounds, No Strenuous Activities, Rest and Relax Today Driving: Do Not Drive (2 weeks) Showering/Bathing: May Shower Wound/Incision Care: Keep Operative Site/Wound Site Clean and Dry Notify Provider of: Fever, Increased Pain, Swelling and Redness, Nausea and/or Vomiting Other/Special Instructions: Continue while . May use over the counter iron for one month. Continue with vitamins. Nothing per vagina for 6 weeks - Discharge Plan *PRESCRIPTION DRUG MONITORING PROGRAM REVIEWED*: Not Applicable *COPY OF PRESCRIPTION DRUG MONITORING REPORT IN PATIENT ABRAN: Not Applicable Prescriptions/Med Rec: Acetaminophen/HYDROcodone [[place] 325-5 MG] 1 tab PO Q4H PRN #30 tablet PRN Reason: Abdominal Pain Ibuprofen [Motrin] 800 mg PO Q8H PRN #30 tablet PRN Reason: mild pain or fever Home Medications: Home Meds [id number]/Ferrous Fumarate/FA [ Vitamin Tablet] 1 tab PO DAILY 04/10/19 [ History] Acetaminophen/HYDROcodone [[place] 325-5 MG] 1 tab PO Q4H PRN #30 tablet 04/12/19 [Rx] Ibuprofen [Motrin] 800 mg PO Q8H PRN #30 tablet 04/12/19 [Rx] Patient Handouts: Hemorrhage, Delivery, Care After Referrals: [facility] [Outside] Odette Bledsoe CNM [Mid-] - (1 week- April 17 @ 8:15am w/ Odette Bledsoe 6 week- May 22 @ 10:45am w/ Odette Bledsoe ) - Discharge Summary/Plan Comment DC Time >30 min.: No - Patient Data Vitals - Most Recent: Last Vital Signs Temp 36.4 C 04/13/19 07:35 Pulse 99 04/13/19 07:35 Resp 17 04/13/19 07:35 BP 101/59 L 04/13/19 07:35 Pulse Ox 98 04/13/19 07:35 Weight - Most Recent: 98.883 kg Lab Results - Last 24 hrs: Laboratory Results - last 24 hr 04/12/19 04/13/19 Range/Units 19:18 05:40 Hgb 8.9 L 7.9 L (12.0-16.0) g/dL Hct 26.3 L 23.8 L (36.0-46.0) % Med Orders - Current: Current Medications Bisacodyl (Dulcolax) 10 mg RECTAL ONETIME PRN PRN Reason: Constipation Carboprost Tromethamine (Hemabate Ds) 250 mcg IM ASDIRECTED PRN PRN Reason: Post Hemorrhage Diphenhydramine HCl (Benadryl) 25 mg IVPUSH Q6H PRN PRN Reason: Itching or Nausea Docusate Sodium (Colace) 100 mg PO BID [facility] Last Admin: 04/13/19 08:20 Dose: 100 mg Emollient Ointment (Lansinoh Hpa) 0 gm TOP ASDIRECTED PRN PRN Reason: Sore Nipples Last Admin: 04/12/19 01:45 Dose: 7 gm Lactated Ringer's (Ringers, Lactated) 1,000 mls @ 150 mls/hr IV ASDIRECTED [facility] Last Admin: 04/11/19 09:05 Dose: 150 mls/hr Oxytocin/Sodium Chloride (Oxytocin 30 Unit/500 Ml-Ns) 30 unit in 500 mls @ 999 mls/hr IV TITRATE [facility] Tranexamic Acid 1,000 mg/ (Sodium Chloride) 110 mls @ 660 mls/hr IV ONETIME PRN PRN Reason: Bleeding Last Admin: 04/10/19 21:00 Dose: 660 mls/hr Lactated Ringer's (Ringers, Lactated) 1,000 mls @ 125 mls/hr IV ASDIRECTED [facility] Ibuprofen (Motrin) 800 mg PO Q8H PRN PRN Reason: mild pain or fever Last Admin: 04/13/19 06:01 Dose: 800 mg Lidocaine HCl (Xylocaine 1%) 50 ml INJECT ONETIME PRN PRN Reason: Laceration repair Methylergonovine Maleate (Methergine) 0.2 mg IM ASDIRECTED PRN PRN Reason: Post Hemorrhage Misoprostol (Cytotec) 200 mcg PO ONETIME PRN PRN Reason: Post Hemorrhage Morphine Sulfate (Morphine) 6 - 8 mg IVPUSH Q6H PRN PRN Reason: Pain (severe 7-10) Last Admin: 04/12/19 02:50 Dose: 6 mg Nalbuphine HCl (Nubain) 10 mg IVPUSH Q1H PRN PRN Reason: Pain (severe 7-10) Ondansetron HCl (Zofran) 4 mg IV Q6H PRN PRN Reason: Nausea/Vomiting Ondansetron HCl (Zofran) 4 mg IVPUSH Q4H PRN PRN Reason: Nausea/Vomiting Oxycodone/Acetaminophen (Percocet 325-5 Mg) 1 tab PO ONETIME PRN PRN Reason: Pain (moderate 4-6) Last Admin: 04/13/19 08:20 Dose: 1 tab Oxycodone/Acetaminophen (Percocet 325-5 Mg) 1 tab PO Q4H PRN PRN Reason: Pain (moderate 4-6) Last Admin: 04/12/19 15:07 Dose: 1 tab Oxycodone/Acetaminophen (Percocet 325-5 Mg) 2 tab PO Q4H PRN PRN Reason: Pain (moderate 4-6) Last Admin: 04/13/19 04:11 Dose: 2 tab Sodium Chloride (Saline Flush) 10 ml FLUSH ASDIRECTED PRN PRN Reason: Keep Vein Open Sodium Chloride (Saline Flush) 2.5 ml FLUSH ASDIRECTED PRN PRN Reason: Keep Vein Open Sodium Chloride (Normal Saline) 10 ml IV ASDIRECTED PRN PRN Reason: IV Use Sterile Water (Sterile Water For Irrigation) 1,000 ml IRR ASDIRECTED PRN PRN Reason: delivery Discontinued Medications Fentanyl (Sublimaze) Confirm Administered Dose 300 mcg .ROUTE .STK-MED ONE Stop: 04/10/19 10:23 Last Admin: 04/11/19 20:05 Dose: Not Given Fentanyl (Sublimaze) Confirm Administered Dose 250 mcg .ROUTE .STK-MED ONE Stop: 04/10/19 18:52 Oxytocin/Sodium Chloride (Oxytocin 30 Unit/500 Ml-Ns) 30 unit in 500 mls @ 2 mls/hr IV TITRATE [facility]; Protocol Last Admin: 04/10/19 11:53 Dose: 2 munits/min, 2 mls/hr Ropivacaine (Naropin 0.2%) Confirm Administered Dose 100 mls @ as directed .ROUTE .STK-MED ONE Stop: 04/10/19 10:24 Last Admin: 04/11/19 20:05 Dose: Not Given Oxytocin/Sodium Chloride (Oxytocin 30 Unit/500 Ml-Ns) Confirm Administered Dose 30 unit in 500 mls @ as directed .ROUTE .STK-MED ONE Stop: 04/10/19 20:29 Last Admin: 04/10/19 20:30 Dose: 999 mls/hr Ketorolac Tromethamine (Toradol) 30 mg IVPUSH Q6H [facility] Stop: 04/11/19 19:16 Last Admin: 04/11/19 20:08 Dose: 30 mg Misoprostol (Cytotec) 25 mcg VAG ONETIME PRN PRN Reason: Cervical Ripening Last Admin: 04/10/19 05:08 Dose: 25 mcg Misoprostol (Cytotec) 25 mcg VAG Q4H PRN PRN Reason: Cervical Ripening Misoprostol (Cytotec) 25 mcg PO Q4H [facility] Last Admin: 04/10/19 05:08 Dose: 25 mcg Morphine Sulfate (Duramorph Pf) Confirm Administered Dose 10 mg .ROUTE .STK-MED ONE Stop: 04/10/19 17:57 Nalbuphine HCl (Nubain) 2.5 mg IVPUSH Q3H PRN PRN Reason: Pruritis Stop: 04/11/19 18:52 Octyl Cyanoacrylate (Dermabond Advance) Confirm Administered Dose 1 applic .ROUTE .STK-MED ONE Stop: 04/10/19 18:39 Last Admin: 04/11/19 20:06 Dose: Not Given Oxytocin (Pitocin) Confirm Administered Dose 20 unit .ROUTE .STK-MED ONE Stop: 04/10/19 18:16 Phenylephrine HCl (Etienne-Synephrine) Confirm Administered Dose 10 mg .ROUTE .STK- MED ONE Stop: 04/10/19 17:53 Ropivacaine (Naropin 0.2%) Confirm Administered Dose 20 ml .ROUTE .STK-MED ONE Stop: 04/10/19 10:23 Last Admin: 04/11/19 20:05 Dose: Not Given Terbutaline Sulfate (Brethine) 0.25 mg SUBCUT ASDIRECTED PRN PRN Reason: Tacysystole
--- NOTE | 2019-04-13 09:50 | PCM.PNPP ---
- General Info Date of Service: 04/13/19 Functional Status: Reports: Pain Controlled - Review of Systems General: Reports: No Symptoms HEENT: Reports: No Symptoms Pulmonary: Reports: No Symptoms Cardiovascular: Reports: No Symptoms Gastrointestinal: Reports: No Symptoms Genitourinary: Reports: No Symptoms Musculoskeletal: Reports: No Symptoms Skin: Reports: No Symptoms Neurological: Reports: No Symptoms Psychiatric: Reports: No Symptoms - General Info Date of Service: 04/13/19 - Patient Data Vital Signs - Most Recent: Last Vital Signs Temp 36.4 C 04/13/19 07:35 Pulse 99 04/13/19 07:35 Resp 17 04/13/19 07:35 BP 101/59 L 04/13/19 07:35 Pulse Ox 98 04/13/19 07:35 Weight - Most Recent: 98.883 kg Lab Results - Last 24 Hours: Laboratory Results - last 24 hr 04/12/19 04/13/19 Range/Units 19:18 05:40 Hgb 8.9 L 7.9 L (12.0-16.0) g/dL Hct 26.3 L 23.8 L (36.0-46.0) % Med Orders - Current: Current Medications Bisacodyl (Dulcolax) 10 mg RECTAL ONETIME PRN PRN Reason: Constipation Carboprost Tromethamine (Hemabate Ds) 250 mcg IM ASDIRECTED PRN PRN Reason: Post Hemorrhage Diphenhydramine HCl (Benadryl) 25 mg IVPUSH Q6H PRN PRN Reason: Itching or Nausea Docusate Sodium (Colace) 100 mg PO BID [facility] Last Admin: 04/13/19 08:20 Dose: 100 mg Emollient Ointment (Lansinoh Hpa) 0 gm TOP ASDIRECTED PRN PRN Reason: Sore Nipples Last Admin: 04/12/19 01:45 Dose: 7 gm Lactated Ringer's (Ringers, Lactated) 1,000 mls @ 150 mls/hr IV ASDIRECTED [facility] Last Admin: 04/11/19 09:05 Dose: 150 mls/hr Oxytocin/Sodium Chloride (Oxytocin 30 Unit/500 Ml-Ns) 30 unit in 500 mls @ 999 mls/hr IV TITRATE [facility] Tranexamic Acid 1,000 mg/ (Sodium Chloride) 110 mls @ 660 mls/hr IV ONETIME PRN PRN Reason: Bleeding Last Admin: 04/10/19 21:00 Dose: 660 mls/hr Lactated Ringer's (Ringers, Lactated) 1,000 mls @ 125 mls/hr IV ASDIRECTED [facility] Ibuprofen (Motrin) 800 mg PO Q8H PRN PRN Reason: mild pain or fever Last Admin: 04/13/19 06:01 Dose: 800 mg Lidocaine HCl (Xylocaine 1%) 50 ml INJECT ONETIME PRN PRN Reason: Laceration repair Methylergonovine Maleate (Methergine) 0.2 mg IM ASDIRECTED PRN PRN Reason: Post Hemorrhage Misoprostol (Cytotec) 200 mcg PO ONETIME PRN PRN Reason: Post Hemorrhage Morphine Sulfate (Morphine) 6 - 8 mg IVPUSH Q6H PRN PRN Reason: Pain (severe 7-10) Last Admin: 04/12/19 02:50 Dose: 6 mg Nalbuphine HCl (Nubain) 10 mg IVPUSH Q1H PRN PRN Reason: Pain (severe 7-10) Ondansetron HCl (Zofran) 4 mg IV Q6H PRN PRN Reason: Nausea/Vomiting Ondansetron HCl (Zofran) 4 mg IVPUSH Q4H PRN PRN Reason: Nausea/Vomiting Oxycodone/Acetaminophen (Percocet 325-5 Mg) 1 tab PO ONETIME PRN PRN Reason: Pain (moderate 4-6) Last Admin: 04/13/19 08:20 Dose: 1 tab Oxycodone/Acetaminophen (Percocet 325-5 Mg) 1 tab PO Q4H PRN PRN Reason: Pain (moderate 4-6) Last Admin: 04/12/19 15:07 Dose: 1 tab Oxycodone/Acetaminophen (Percocet 325-5 Mg) 2 tab PO Q4H PRN PRN Reason: Pain (moderate 4-6) Last Admin: 04/13/19 04:11 Dose: 2 tab Sodium Chloride (Saline Flush) 10 ml FLUSH ASDIRECTED PRN PRN Reason: Keep Vein Open Sodium Chloride (Saline Flush) 2.5 ml FLUSH ASDIRECTED PRN PRN Reason: Keep Vein Open Sodium Chloride (Normal Saline) 10 ml IV ASDIRECTED PRN PRN Reason: IV Use Sterile Water (Sterile Water For Irrigation) 1,000 ml IRR ASDIRECTED PRN PRN Reason: delivery Discontinued Medications Fentanyl (Sublimaze) Confirm Administered Dose 300 mcg .ROUTE .STK-MED ONE Stop: 04/10/19 10:23 Last Admin: 04/11/19 20:05 Dose: Not Given Fentanyl (Sublimaze) Confirm Administered Dose 250 mcg .ROUTE .STK-MED ONE Stop: 04/10/19 18:52 Oxytocin/Sodium Chloride (Oxytocin 30 Unit/500 Ml-Ns) 30 unit in 500 mls @ 2 mls/hr IV TITRATE [facility]; Protocol Last Admin: 04/10/19 11:53 Dose: 2 munits/min, 2 mls/hr Ropivacaine (Naropin 0.2%) Confirm Administered Dose 100 mls @ as directed .ROUTE .STK-MED ONE Stop: 04/10/19 10:24 Last Admin: 04/11/19 20:05 Dose: Not Given Oxytocin/Sodium Chloride (Oxytocin 30 Unit/500 Ml-Ns) Confirm Administered Dose 30 unit in 500 mls @ as directed .ROUTE .STK-MED ONE Stop: 04/10/19 20:29 Last Admin: 04/10/19 20:30 Dose: 999 mls/hr Ketorolac Tromethamine (Toradol) 30 mg IVPUSH Q6H [facility] Stop: 04/11/19 19:16 Last Admin: 04/11/19 20:08 Dose: 30 mg Misoprostol (Cytotec) 25 mcg VAG ONETIME PRN PRN Reason: Cervical Ripening Last Admin: 04/10/19 05:08 Dose: 25 mcg Misoprostol (Cytotec) 25 mcg VAG Q4H PRN PRN Reason: Cervical Ripening Misoprostol (Cytotec) 25 mcg PO Q4H [facility] Last Admin: 04/10/19 05:08 Dose: 25 mcg Morphine Sulfate (Duramorph Pf) Confirm Administered Dose 10 mg .ROUTE .STK-MED ONE Stop: 04/10/19 17:57 Nalbuphine HCl (Nubain) 2.5 mg IVPUSH Q3H PRN PRN Reason: Pruritis Stop: 04/11/19 18:52 Octyl Cyanoacrylate (Dermabond Advance) Confirm Administered Dose 1 applic .ROUTE .STK-MED ONE Stop: 04/10/19 18:39 Last Admin: 04/11/19 20:06 Dose: Not Given Oxytocin (Pitocin) Confirm Administered Dose 20 unit .ROUTE .STK-MED ONE Stop: 04/10/19 18:16 Phenylephrine HCl (Etienne-Synephrine) Confirm Administered Dose 10 mg .ROUTE .STK- MED ONE Stop: 04/10/19 17:53 Ropivacaine (Naropin 0.2%) Confirm Administered Dose 20 ml .ROUTE .STK-MED ONE Stop: 04/10/19 10:23 Last Admin: 04/11/19 20:05 Dose: Not Given Terbutaline Sulfate (Brethine) 0.25 mg SUBCUT ASDIRECTED PRN PRN Reason: Tacysystole - Interaction Infant Disposition, : in Room with Family Interaction: Holding Infant Feeding: Attempted ; Nursed Fair/Poor Support Person: Significant Other - Recovery Exam Fundal Tone: Firm Fundal Level: 1 Fingerbreadths Below Umbilicus Fundal Placement: Midline Lochia Amount: Scant Lochia Color: Rubra/Red Perineum Description: Intact, Minimal Bruising/Swelling Episiotomy/Laceration: None Bladder Status: Voiding Urinary Elimination: Voided - Exam General: Alert, Oriented HEENT: Pupils Equal Neck: Supple Lungs: Clear to Auscultation, Normal Respiratory Effort Cardiovascular: Regular Rate, Regular Rhythm GI/Abdominal Exam: Normal Bowel Sounds, Soft Extremities: Normal Inspection, Non-Tender. No: No Pedal Edema (2+ bilateral) Wound/Incisions: Healing Well Neurological: No New Focal Deficit Psy/Mental Status: Alert, Normal Affect, Normal Mood - Problem List & Annotations (1) delivery delivered SNOMED Code(s): 405820620 Code(s): O82 - ENCOUNTER FOR DELIVERY WITHOUT INDICATION Status: Acute Current Visit: Yes (2) Acute blood loss anemia SNOMED Code(s): 399079990 Code(s): D62 - ACUTE POSTHEMORRHAGIC ANEMIA Status: Acute Current Visit: Yes (3) hemorrhage SNOMED Code(s): 54820389 Code(s): O72.1 - OTHER IMMEDIATE HEMORRHAGE Status: Acute Current Visit: Yes - Problem List Review Problem List Initiated/Reviewed/Updated: Yes - My Orders Last 24 Hours: My Active Orders 04/13/19 09:34 Ready for Discharge [RC] PER UNIT ROUTINE - Assessment Assessment:: POD#3 after primary for arrest disorder complicated by hemorrhage received 3 units PRBC and has been stable postop with final hemoglobin 7.9. Denies any symptoms of dizziness or shortness of breath. - Plan Plan:: Discharge held from last night due to tachycardia, vitals have been normal overnight, patient denies any symptoms related to anemia except feeling fatigued. Discharge instruction reviewed again. She requests that her postop and appointment are made with Dr. Rubi.
== END 2019-04-13 10:50 | disposition home or self-care (01) | DRG 787 ==
LOC: MW.OBCHECK 03:45 → MW.OB 03:53 → OBSVTOIN 18:46 → MW.OB 04-11 03:26
PROVIDERS: ADMIT Obstetrics & Gynecology; ATTEND Obstetrics & Gynecology
PROC: 10D00Z1 Extraction of Products of Conception, Low, Open Approach (ICD-10-PCS; principal; 2019-04-11)
PROC: 10D17Z9 Manual Extraction of Products of Conception, Retained, Via Natural or Artificial Opening (ICD-10-PCS; 2019-04-11)
PROC: 30233N1 Transfusion of Nonautologous Red Blood Cells into Peripheral Vein, Percutaneous Approach (ICD-10-PCS; 2019-04-11)
PROC: 10907ZC Drainage of Amniotic Fluid, Therapeutic from Products of Conception, Via Natural or Artificial Opening (ICD-10-PCS; 2019-04-11)
PROC: 3E033VJ Introduction of Other Hormone into Peripheral Vein, Percutaneous Approach (ICD-10-PCS; 2019-04-11)
DX: O62.1 Secondary uterine inertia (principal); O72.1 Other immediate postpartum hemorrhage; D62 Acute posthemorrhagic anemia; Z37.0 Single live birth; Z3A.39 39 weeks gestation of pregnancy; Z79.899 Other long term (current) drug therapy
CPT/HCPCS: 36415; 36430; 51702; 59025; 85014; 85018; 85027; 86850; 86900; 86901; 86920; 86921; 86922; A9270-GY; J1885; J2270; J2370; J2590; J3010; J7030; J7120; P9016

== ENCOUNTER 2023-11-13 10:16 | Inpatient (IN) | payer MEDICAID ==
[~2023-11-13 10:16] MED LIST: Acetaminophen/oxyCODONE 325-5 MG Tab PO PRN; Albuterol 0.083% 2.5 MG/3 ML Neb Soln NEB PRN; HYDROmorphone 1 MG/ML Syringe IVPUSH PRN; Metoclopramide 10 MG/2 ML SDV IVPUSH PRN; Morphine 2 MG/ML SYRINGE IVPUSH PRN; Naloxone 0.4 MG/ML SDV IVPUSH PRN; Ondansetron 4 MG/2 ML SDV IVPUSH PRN; diphenhydrAMINE 50 MG/ML SDV IVPUSH PRN; droPERidol 5 MG/2 ML SDV IVPUSH PRN; ePHEDrine 50 MG/ML SDV IVPUSH PRN; fentaNYL 100 MCG/2 ML SDV IVPUSH PRN; fentaNYL 50 MCG/ML SDV IVPUSH PRN
[2023-11-13] MEDS ORDERED: Sodium Chloride 0.9% 10 ML Syringe FLUSH PRN (10:58)
[2023-11-13] MEDS ORDERED: ceFAZolin 2 GM in Sodium Chloride 0.9% 50 ML IV ONE (10:58)
[2023-11-13] MEDS ORDERED: Sodium Chloride 0.9% 2.5 ML Syringe FLUSH PRN (10:58)
[2023-11-13] MEDS ORDERED: Sodium Chloride 0.9% 20 ML SDV IV PRN (10:58)
[2023-11-13] MEDS ORDERED: Citric Acid/Sodium Citrate Solution 30 ML Cup PO ONE (10:58)
[2023-11-13] MEDS ORDERED: Lactated Ringers 1,000 ML IV SCH ×2 (11:00→19:00)
[2023-11-13] MEDS ORDERED: Oxytocin/0.9 % Sodium Chloride 30 UNIT/500 ML BAG IV SCH ×2 (11:00→19:00)
[2023-11-13 11:08] LABS: HEMATOCRIT 36.8 % (37.0-47.0); HEMOGLOBIN 13.1 g/dL (12.0-16.0); MEAN CORPUSCULAR HEMOGLOBIN 31.3 pg (28.0-32.0); MEAN CORPUSCULAR HGB CONC 35.6 g/dL (32.0-36.0); MEAN CORPUSCULAR VOLUME 87.8 fL (83.0-99.0); PLATELET COUNT,PLT 305 K/uL (150-400); RED BLOOD CELL COUNT 4.19 M/uL (4.10-5.30); WHITE BLOOD CELL COUNT,WBC 9.95 K/uL (3.9-11.3)
[2023-11-13] MEDS ORDERED: Ondansetron 4 MG/2 ML SDV ONE (11:38)
[2023-11-13] MEDS ORDERED: Tranexamic Acid 1,000 MG/10 ML Vial ONE (11:38)
[2023-11-13] MEDS ORDERED: Ketorolac 30 MG/ML SDV ONE (11:38)
[2023-11-13] MEDS ORDERED: ceFAZolin 1 GM Vial ONE (11:38)
[2023-11-13] MEDS ORDERED: Oxytocin 10 Units/1 ML SDV ONE (11:38)
[2023-11-13] MEDS ORDERED: ePHEDrine 50 MG/ML SDV ONE (11:38)
[2023-11-13] MEDS ORDERED: Phenylephrine 1% 10 MG/ML SDV ONE (11:38)
[2023-11-13] MEDS ORDERED: Water For Injection, Sterile 20 ML ONE (11:38)
[2023-11-13] MEDS ORDERED: dexmedeTOMIDine HCl 200 MCG/2 ML SDV ONE (11:38)
[2023-11-13] MEDS ORDERED: Ropivacaine 0.5% 5 MG/ML 30 ML SDV ONE (11:38)
[2023-11-13] MEDS ORDERED: Morphine PF 10 MG/10 ML SDV ONE (11:40)
[2023-11-13] MEDS ORDERED: fentaNYL 100 MCG/2 ML SDV ONE (11:41)
[2023-11-13] MEDS ORDERED: Calcium Chloride 10% 1 GM/10 ML Syringe ONE (11:49)
[2023-11-13] MEDS ORDERED: Midazolam 1 MG/ML 2 ML SDV ONE (11:50)
[2023-11-13] MEDS: Acetaminophen 1,000 MG in Premix Bag 1 BAG IV SCH ×2 (15:32→21:13)
[2023-11-13] MEDS ORDERED: Ondansetron 4 MG/2 ML SDV IVPUSH PRN (18:51)
[2023-11-13] MEDS ORDERED: Methylergonovine 0.2 MG/1 ML Amp IM PRN (18:51)
[2023-11-13] MEDS ORDERED: Lanolin 100% Cream 7 GM Tube TOP PRN (18:51)
[2023-11-13] MEDS ORDERED: diphenhydrAMINE 50 MG/ML SDV IVPUSH PRN (18:51)
[2023-11-13] MEDS ORDERED: Acetaminophen/oxyCODONE 325-5 MG Tab PO PRN (18:51)
[2023-11-13] MEDS ORDERED: Oxytocin 10 Units/1 ML SDV IM PRN (18:51)
[2023-11-13] MEDS ORDERED: Bisacodyl 10 MG Supp RECTAL PRN (18:51)
[2023-11-13] MEDS ORDERED: Misoprostol 200 MCG Tab RECTAL PRN (18:51)
[2023-11-13] MEDS: Ketorolac 30 MG/ML SDV IVPUSH SCH (19:52)
[2023-11-13] MEDS: Docusate Sodium 100 MG Cap PO SCH (20:24)
[2023-11-14] MEDS: Ketorolac 30 MG/ML SDV IVPUSH SCH ×3 (01:10→13:34)
[2023-11-14] MEDS: Acetaminophen 1,000 MG in Premix Bag 1 BAG IV SCH ×2 (03:03→08:50)
[2023-11-14 06:12] LABS: HEMATOCRIT 33.2 % (37.0-47.0); HEMOGLOBIN 11.6 g/dL (12.0-16.0)
[2023-11-14] MEDS: Docusate Sodium 100 MG Cap PO SCH ×2 (08:46→20:49)
[2023-11-14] MEDS: Ibuprofen 800 MG Tab PO PRN (20:49)
[2023-11-14] MEDS: Acetaminophen/oxyCODONE 325-5 MG Tab PO PRN (21:45)
[2023-11-15] MEDS: Acetaminophen/oxyCODONE 325-5 MG Tab PO PRN ×2 (04:58→09:52)
[2023-11-15] MEDS: Ibuprofen 800 MG Tab PO PRN (08:04)
[2023-11-15] MEDS: Docusate Sodium 100 MG Cap PO SCH (09:53)
== END 2023-11-15 12:56 | disposition home or self-care (01) | DRG 788 ==
LOC: MW.OB 10:16 → OBSVTOIN 10:16 → MW.OB 21:19
PROVIDERS: ADMIT Obstetrics & Gynecology Obstetrics; ATTEND Obstetrics & Gynecology Obstetrics
PROC: 10D00Z1 Extraction of Products of Conception, Low, Open Approach (ICD-10-PCS; principal; 2023-11-13 12:00)
DX: O34.211 Maternal care for low transverse scar from previous cesarean delivery (principal); O99.344 Other mental disorders complicating childbirth; F41.9 Anxiety disorder, unspecified; Z37.0 Single live birth; Z3A.39 39 weeks gestation of pregnancy
CPT/HCPCS: 01961; 36415; 59025; 64488; 85014; 85018; 85027; 86592; 86850; 86900; 86901; A9270-GY; J0131; J0690; J1200; J1885; J2250; J2274; J2371; J2405; J2590; J2795; J3010; J3490; J7120